=== PATIENT | female | born 1945 | race Caucasian/White ===

== ENCOUNTER → 2019-01-20 14:30 | Outpatient (CLI) | payer MEDICARE, SELFPAY ==
--- NOTE | 2019-01-20 | DI.MG.S_ITS ---
BILATERAL DIGITAL SCREENING MAMMOGRAM 3D/2D WITH CAD: 01/20/2019 CLINICAL: Routine screening. Comparison is made to exams dated: 11/04/2010 mammogram, 11/10/2011 mammogram, and 08/10/2014 mammogram - [facility]. The tissue of both breasts is extremely dense, which lowers the sensitivity of mammography. Current study was also evaluated with a Computer Aided Detection (CAD) system. There is an oval equal density focal asymmetry with an obscured and circumscribed margin in the left breast at 5 o'clock anterior depth. No other significant masses, calcifications, or other findings are seen in either breast. IMPRESSION: INCOMPLETE: NEEDS ADDITIONAL IMAGING EVALUATION The oval equal density focal asymmetry in the left breast is indeterminate. Mediolateral and spot compression views as well as additional views with possible ultrasound are recommended. This exam was interpreted at Station ID: [id number]. NOTE: For mammograms, a report in lay terms will be sent to the patient. Approximately 15% of breast malignancies will not be visualized mammographically. In the management of a palpable breast mass, a negative mammogram must not discourage biopsy of a clinically suspicious lesion. Electronically Signed By: Jaswinder rosales/munira:01/24/2019 09:28:20 letter sent: Additional Imaging Needed ACR BI-RADS Category 0: Incomplete [id number]
== END ==
PROVIDERS: Family Provider Internal Medicine; PCP Internal Medicine; Visit Provider Internal Medicine
DX: Z12.31 Encounter for screening mammogram for malignant neoplasm of breast (principal); M89.9 Disorder of bone, unspecified; R92.8 Other abnormal and inconclusive findings on diagnostic imaging of breast; M81.0 Age-related osteoporosis without current pathological fracture; Z12.39 Encounter for other screening for malignant neoplasm of breast
CPT/HCPCS: 77063; 77067; 77080

== ENCOUNTER 2019-02-05 20:16 | Emergency (ER) | payer MEDICARE, SELFPAY ==
[2019-02-05 20:28] VITALS: BP 180/89; PULSE 76; RESP 18; TEMP 36.6; O2SAT 97
--- NOTE | 2019-02-05 20:30 | DI.RAD.S_ITS ---
PROCEDURE: XR HAND RT MIN 3V INDICATIONS: dog bite distal middle finger TECHNIQUE: 3 views of the hand(s) acquired. COMPARISON: [facility], , HAND 3V RIGHT, 08/02/2016, 9:35. FINDINGS: Bones: No fractures or dislocations but there is a thin calcific radiodensity proximal to the third distal interphalangeal joint in an area previously normal on plain film imaging 08/02/16 with associated soft tissue swelling and slight soft tissue irregularity consistent with laceration. Carpal bones are normally aligned. No suspicious bony lesions. Soft tissues: No suspicious soft tissue calcifications. IMPRESSION: Swelling and small radiodensity that is linear and likely calcific within the soft tissues that are thickened at the radial border of the distal aspect of the third middle phalanx. In the setting of dog bite injury it is possible that this represents an avulsion fragment of seminole bone from the patient or even a small tooth fracture fragment from the dog. Dictated by: Donte Navarro M.D. on 02/05/2019 at 20:59 Approved by: Donte Navarro M.D. on 02/05/2019 at 21:02
--- NOTE | 2019-02-05 20:36 | ED_ITS ---
HPI - General Adult General Chief complaint: Extremity Injury, Upper Stated complaint: wound check Time Seen by Provider: 02/05/19 20:16 Source: patient and family (Daughter) Mode of arrival: ambulatory Limitations: no limitations History of Present Illness HPI narrative: Patient is here for evaluation of potentially worsening infection to her right middle finger. Patient states that she was bit by a dog. This dog was a known animal. Was a PET of her relative where she is staying. She went to go see an outside facility where she had some stitches placed over an area of the cut and was given a prescription for Keflex. They fill the Keflex this morning however the patient has not taken any of these antibiotics. She is up-to-date on her tetanus. She does not remember if they took any x-rays. Most of the HPI was provided by the patient's daughter. Related Data Home Medications Medication Instructions Recorded Confirmed benazepril-hydrochlorothiazide #0 08/09/16 01/01/19 tizanidine #0 08/09/16 01/01/19 tramadol #0 08/09/16 01/01/19 Previous Rx's Medication Instructions Recorded erythromycin 5 mg/gram (0.5 %) eye 1 applic OPHTHALMIC (EYE) BID #3.5 01/01/19 ointment gram amoxicillin-pot clavulanate 1 tab PO BID 10 Days #20 tab 02/05/19 [Augmentin] Allergies Allergy/AdvReac Type Severity Reaction Status Date / Time No Known Drug Allergies Allergy Verified 01/01/19 11:27 Review of Systems Review of Systems Provided by both the patient and the daughter Constitutional Denies fever(s) Musculoskeletal Comments: Tenderness to the end of the right middle finger Integumentary/Breasts Comments: Cuts to the end of the right middle finger Neurologic Comments: No tingling Hematologic/Lymphatic Denies easy bleeding and Denies easy bruising [facility] Medical History Dementia (Acute) Social History Smoking Status: Former smoker Social History Smoking Status: Former smoker Exam Initial Vital Signs Initial Vital Signs: Vital Signs Temperature 97.9 F 02/05/19 20:28 Pulse Rate 76 02/05/19 20:28 Respiratory Rate 18 02/05/19 20:28 Blood Pressure 180/89 H 02/05/19 20:28 Pulse Oximetry 97 02/05/19 20:28 Const General: cooperative, comfortable, well developed, well groomed and No acute distress Orientation: alert and awake Cardio Pulses: radial pulses present on the right Skin Other: Patient with 2 superficial cuts to the dorsum of the right middle finger over top of an distal to the D IP joint. Patient with a deeper cut to the palmar aspect distal to the D IP joint of the right middle finger. There are sutures in place consistent with her stated history. No active drainage. Neuro Sensory Exam: no sensory deficits noted Extrem Other: Patient has full range of motion of the MCP PIP of the right middle finger. Does have limited range of motion of the DIP secondary to swelling. Psych Appearance: grossly normal and well kempt Course Orders Ordered: ED Orders 02/05/19 20:30 XR hand RT min 3V Stat Discontinued Medications Amoxicillin/Clavulanate Potassium (Augmentin 875-125 Mg) 1 tab PO NOW ONE Stop: 02/05/19 21:22 Last Admin: 02/05/19 21:30 Dose: 1 tab Bacitracin (Bacitracin) 1 applic TOP NOW ONE Stop: 02/05/19 21:22 Last Admin: 02/05/19 21:31 Dose: 1 applic Lidocaine HCl (Xylocaine 1% (Pf)) 4 ml INJ NOW ONE Stop: 02/05/19 20:54 Last Admin: 02/05/19 20:58 Dose: 4 ml Vital Signs - 8 hr 02/05/19 20:28 02/05/19 21:49 02/05/19 21:50 Temperature 97.9 F Pulse Rate 76 72 68 Respiratory Rate 18 18 Blood Pressure 180/89 H 199/89 H 199/89 H Pulse Oximetry 97 100 99 Medical Decision Making Imaging Data X-ray hand: Radiologist's impression: [address] [id number] XRay Report Signed Patient: Diana Fermin KMR#: [id number] : 4Acct:[id number] Age/Sex: 74 / FDate of Service: 02/05/19 Loc: ED Accession Number: [id number] Procedure: XR hand RT min 3V Ordering Provider: Eulalio Rodarte D.O. PROCEDURE: XR HAND RT MIN 3V INDICATIONS: dog bite distal middle finger TECHNIQUE: 3 views of the hand(s) acquired. COMPARISON: [facility], , HAND 3V RIGHT, 08/02/2016, 9:35. FINDINGS: Bones: No fractures or dislocations but there is a thin calcific radiodensity proximal to the third distal interphalangeal joint in an area previously normal on plain film imaging 08/02/16 with associated soft tissue swelling and slight soft tissue irregularity consistent with laceration. Carpal bones are normally aligned. No suspicious bony lesions. Soft tissues: No suspicious soft tissue calcifications. IMPRESSION: Swelling and small radiodensity that is linear and likely calcific within the soft tissues that are thickened at the radial border of the distal aspect of the third middle phalanx. In the setting of dog bite injury it is possible that this represents an avulsion fragment of belkofski bone from the patient or even a small tooth fracture fragment from the dog. Dictated by: Donte Navarro M.D. on 02/05/2019 at 20:59 Approved by: Donte Navarro M.D. on 02/05/2019 at 21:02 MDM Narrative Medical decision making narrative: I did remove 1 stitch from the palmar aspect of the wound and explore the wound however was unable to find the small potential foreign body. They have yet to take the Keflex they were given earlier today. Given that this is a dog bite on the hand informed them that they should not take this Keflex and I will give them a prescription for Augmentin. She was given her 1st dose here in the emergency department. The wound was bandaged. No indication for admission or orthopedic referrals. I discussed with the daughter return precautions. Informed her that she should watch this over the next 24 hours and if the swelling or the redness worsens th at she should return to the emergency department for further evaluation. Low suspicion for flexor tenosynovitis. The patient and the daughter who is at bedside expressed understanding and agreement. Discharge Plan Departure Patient Disposition: Home Clinical Impression: Dog bite Qualifiers: Encounter type: initial encounter Qualified Code(s): W54.0XXA - Bitten by dog, initial encounter Cellulitis Qualifiers: Site of cellulitis: extremity Site of cellulitis of extremity: finger Laterality: right Qualified Code(s): L03.011 - Cellulitis of right finger Discharge Date/Time: 02/05/19 21:51 Interventions: ED Discharge Assessment Last Done: 02/05/19 21:50 Instructions: DI for Animal Bites, DI for Dog Bite Activity Restrictions/Additional Instructions: Do not take the Keflex that your given a prescription for after prior visit. Start taking the prescription you were given this evening as directed. Your 1st dose of antibiotics was given here in the emergency department. The finger does need to be re-evaluated in 24 hours. You can do this at home. If it is no worse than it is this evening then continue the antibiotics as directed. If the redness worsens then return to the emergency department. Contact her primary doctor tomorrow for follow-up. Prescriptions: New amoxicillin-pot clavulanate [Augmentin] 875-125 mg tablet 1 tab PO BID 10 Days Qty: 20 RF: 0 No Action erythromycin 5 mg/gram (0.5 %) ointment 1 applic ophthalmic (eye) BID Qty: 3.5 RF: 2 tizanidine 2 mg tablet Qty: 0 RF: 0 benazepril-hydrochlorothiazide 10-12.5 mg tablet Qty: 0 RF: 0 tramadol 100 mg tablet, ER multiphase 24 hr Qty: 0 RF: 0 Referrals: Octaviano Muñiz MD [Primary Care Provider] -
[2019-02-05] MEDS: LIDOCAINE 1% (PF) INJ 4 ML INJ (20:58)
[2019-02-05] MEDS: AMOXICILLIN/CLAV 875/125 MG 1 TAB PO (21:30)
[2019-02-05] MEDS: BACITRACIN OINT 0.9 GM PCKT 1 APPLIC TOP (21:31)
--- NOTE | 2019-02-05 21:45 | PC.NURSE ---
Her right 3rd finger injury site was dressed with telfa after bacitracin,then tube qauze dressing applied.SHe had a suture intact that the clinic applied yesterday.
[2019-02-05 21:49] VITALS: BP 199/89; PULSE 72; RESP 18; O2SAT 100
[2019-02-05 21:50] VITALS: BP 199/89; PULSE 68; O2SAT 99
== END 2019-02-05 21:51 | disposition home or self-care (01) ==
PROVIDERS: Emergency Provider Emergency Medicine; Family Provider Internal Medicine; PCP Internal Medicine
DX: L03.011 Cellulitis of right finger (principal); W54.0XXA Bitten by dog, initial encounter
CPT/HCPCS: 73130; 96372; 99283